=== PATIENT | male | born 1985 | race African-American/Black ===

== ENCOUNTER → 2021-08-22 | Emergency (ER) | payer SELFPAY ==
[~2021-08-22] VITALS: Ht 177.8 cm; Wt 79.4 kg
--- NOTE | 2021-08-22 13:35 | NUR ---
BIBRA [address] C/O OD ON UNKNOWN DRUG. NARCAN 4MG VIA NASAL GIVEN BY EMS. PATIENT IS NON RESPONSIVE TO VERBAL COMMAND BUT WITHDRAWS TO PAIN. VITALS CHECKED. PLACED COMFORTABLY IN BED
[2021-08-22 14:03] LABS: BASOPHILS # (AUTO) 0.1 K/uL (0.0-0.2); BASOPHILS % (AUTO) 0.9 % (0.0-2.0); EOSINOPHILS % (AUTO) 1.3 % (0.0-6.0); HEMATOCRIT 40 % (39-51); HEMOGLOBIN 13.3 g/dL (13.5-17.5); LYMPHOCYTES % (AUTO) 24.6 % (20.0-44.0); MEAN CORPUSCULAR HGB CONC 33 g/dl (31.0-36.0); MEAN CORPUSCULAR VOLUME 88 fL (80-96); MONOCYTES % (AUTO) 12.5 % (2.0-12.0); NEUTROPHILS % (AUTO) 60.7 % (43.0-81.0); PLATELET COUNT (AUTO) 227 K/uL (150-450); RED BLOOD CELL COUNT(AUTO) 4.56 MIL/uL (4.5-6.0); WHITE BLOOD COUNT (AUTO) 8.2 K/uL (4.3-11.0)
[2021-08-22 14:17] LABS: CALCIUM, SERUM 8.8 mg/dL (8.5-10.1); CREATININE 0.9 mg/dL (0.6-1.3); POTASSIUM 4.1 mmol/L (3.5-5.1)
[2021-08-22 14:22] LABS: ALBUMIN 3.6 g/dL (3.4-5.0); BILIRUBIN,DIRECT 0.2 mg/dL (0.0-0.2); BILIRUBIN,TOTAL 0.9 mg/dL (0.2-1.0); TOTAL PROTEIN, SERUM 6.9 g/dL (6.4-8.2)
--- NOTE | 2021-08-22 14:54 | NUR ---
STRAIGHT CATH INSERTED. URINE SPECIMEN SENT TO LAB
[2021-08-22 15:24] LABS: BILIRUBIN,URINE NEGATIVE (NEGATIVE); COLOR,URINE YELLOW (YELLOW); LEUKOCYTE ESTERASE ,URINE NEGATIVE (NEGATIVE); NITRITE, URINE NEGATIVE (NEGATIVE); PH,URINE 7.5 (5.0-8.0); PROTEIN,URINE 30 mg/dl (NEGATIVE); UGLUCOSE NEGATIVE (NEGATIVE); UROBILINOGEN,URINE >=8.0 EU/dL (0.2)
--- NOTE | 2021-08-22 19:01 | NUR ---
DINNER OFFERED. PATIENT ABLE TO FINISH THE FOOD
--- NOTE | 2021-08-23 05:09 | NUR ---
PT STILL UNABLE TO PROVIDE NAME; PER DIRECTOR OF MARKET RESEARCH, PT TALKING TO SELF EARLIER; WILL CONT TO MONITOR
--- NOTE | 2021-08-23 07:44 | NUR ---
PT SLEEPING IN BED. VS STABLE. WILL CONTINUE TO MONITOR.
--- NOTE | 2021-08-23 10:01 | NUR ---
PT AWAKE,AAOX4, SPEAKS IN CLEAR SENTENCES.AWARE OF SITUATION. SITTING UP IN BED. VS STABLE.
--- NOTE | 2021-08-23 11:40 | NUR ---
SS consult: SS Consult requested for homelessness. The pt. is a 35-year-old Black male patient who was BIBRA to ED due to: "Patient was found altered and given Narcan nasally with good results" per EMR. Upon SS consult, the pt. is Alert & Oriented x 3 and makes good eye contact. Pt. states he does not know what happened. The pt. appears unkempt and presents with dysphoric mood & affect. Pt.'s speech is clear. Pt.'s thought process is WNL. Pt. denies SI/HI and stated he is experiencing intermittent visual and auditory hallucinations (no commanding voices). SW explored pt.'s living situation. Patient states he has been experiencing homelessness for the past year and usually stays in the [facility]. SW explored pt.'s drug & ETOH use. Pt. states he drinks alcohol and uses drugs (refused to specify). SW offered addiction resources and pt. accepted them. SW provided motivational interviewing and encouraged pt. to seek treatment. pt. refused referral for rehab. SW explored pt.'s mental health Hx. Pt. denies any Hx. of mental illness. Per pt. he is ambulatory and independent with all his ADL's. SW explored pt.'s support system. Pt. states he has no support system. Plan: Pt. states he would like to return to the [facility] where he normally resides. Patient was provided TAP card and pt. accepted it. SW provided pt. with homeless resources and pt. accepted them. Pt. signed homeless waiver and it was placed in the chart. Year-round shelters: [facility] [address] [place], [place] [id number] ; [facility] [address] [place] [address]; [facility] [id number] [facility] [address] Winter Shelters: SPA 2 | [facility] Andres: Luz Address: Confidential (call for location ) Population Served: Coed # of Beds: 57 SPA 4 | [facility] Provider: [facility] Last Address: [address] [place] [address] # of Beds: 49 Population Served: Coed SPA 6 | [facility] Provider: [facility] Last [facility]: [address] [facility] [place] [address] # of Beds: 49 Population Served: Coed [facility] Provider: Lamont FLANAGAN Address: [address] [facility] [place] [address] # of Beds: 20 Population Served: Women MARTINEZ Facility Provider: Home at Last Address: [address] [facility] [address] # of Beds: 30 Population Served: Women SPA 8 | [facility] Provider: Sydnee cuello Kelly Address: [address] [facility] [address] # of Beds: 65 Population Served: Coed Hygiene: [facility] [address] [facility] ; [facility] [address] [facility] ; [facility] [address] [facility] . Food Resources: [place] [employer] [facility] at [facility]- [address] [facility]; Meet Each Need with Dignity ([facility]) [address] [facility]; [facility] [address] [facility]; [facility] [address]99 [facility]. Mental Health resources provided: [facility] [address] [place] [address] ; [facility] Mental [facility] [employer] [address] [facility] [address], [place] [address] ; Miley Jose [facility] [address] [place] [place] [address] ; [facility] [address] [place] [address] Healthcare Clinics: [facility] [address] [facility], [address] [place]. [place] ; [facility] [address] [facility] [address] [place] [address]; [facility] [employer] [address] [facility] [place] [address] 250) [phone] Counseling--Outpatient [facility] [address] [facility], [place] [address] (Specializes in in-depth psychotherapy for emotional distress: anxiety, depression, interpersonal conflicts, life transitions, childhood abuse) [facility] [address] [place] [address] (Assist with solving problem marital difficulties, separation & divorce, aging parents, & grief, chronic & terminal illness) [facility] [address] [place] [address] (Deal with loss & grief, anxiety, marital difficulties) Homebound/Mental Health Services [address] [facility] [place] [address] (Provide in-home mental services to people who are incapable of leaving their homes) [facility] of the Elderly Senior Service/Resource Center [address] [place] [address] [facility] [address] [place] [address] PSYCHIATRIC OUTPATIENT SERVICES [facility] Partial Hospitalization and Intensive Outpatient Program (Managed Care and Alma Only)[address] [address]. [facility] [phone] [facility] Partial Hospitalization and Outpatient [id number] [facility]. [address] [place], [place] [phone] [facility] [id number] [facility] [address] [place], [place] [phone] [facility] Partial Hospitalization and Outpatient [id number] [facility] [place], [phone] Substance Abuse resources provided included: [facility] Substance Abuse Self-Helpline ([facility]) ; CRI -HELP [address] [facility]. [place] [address] ; [facility] [address] [facility] [address] ; [facility] [address] [place] [address] ; [facility] [address] [facility] [phone] ; [facility] [address] [facility] [address] ; [facility] [address] [facility] [phone] ; [facility] Substance Abuse Helpline([facility])-[facility] ; [facility] ; [facility] [place]; Cri[facility]Help Veteran; [facility] Abraham Bey; [facility]; [facility] Red[facility]; [facility] [place]; [facility]'s [employer] [place]; Alcoholics Anonymous -[facility]V; Jh-Jvhi-Wbnhmnp ; Marijuana Anonymous -SFV; Narcotics Anonymous www.na.org;
--- NOTE | 2021-08-23 11:46 | NUR ---
Patient given written and verbal discharge instructions. Patient verbalizes understanding of instructions. Patient is ambulatory with steady gait. Refuses offer of nursing home placement. Patient given list of available shelters in surrounding area.Appropriate clothing upon discharge. pt wristband removed.
[2021-08-23 11:52] VITALS: BP 119/81
== END | disposition home or self-care (01) ==
LOC: ER 13:36 → EDBD 13:36
DX: G93.40 Encephalopathy, unspecified (principal); F15.10 Other stimulant abuse, uncomplicated; Z60.2 Problems related to living alone
CPT/HCPCS: 36415; 80048-TC; 80076-TC; 85025-TC; G0480